=== PATIENT | male | born 1950 | race Caucasian/White ===

== ENCOUNTER 2019-01-13 17:56 | Emergency (ER) | payer BC ==
[2019-01-13 19:34] LABS: ABS Basophils 0.1 10^3/ul (0-0.2); ABS Eosinophils 0.1 10^3/ul (0-0.6); ABS Lymphocytes 0.7 10^3/ul (1.0-4.8); ABS Monocytes 0.8 10^3/ul (0-0.8); ABS Nucleated RBC 0 10^3/ul; Eosinophil % 0.5 %; Hematocrit 44 % (42-52); Lymphocyte % 4.9 %; Mean Corpuscular HGB Conc 34 g/dl (31-36); Mean Corpuscular Hemoglobin 30 pg (27-31); Mean Corpuscular Volume 90 fL (80-94); Mean Platelet Volume 9.1 fL (7.4-10.4); Nucleated Red Blood Cells % 0; Platelet Count 199 10^3/ul (150-450); Red Blood Count 4.92 10^6/ul (4.00-5.40); Red Cell Distribution Width 13 % (10.5-15); White Blood Count 13.5 10^3/ul (3.5-10.8)
[2019-01-13 19:46] LABS: Albumin 4.6 g/dL (3.2-5.2); Albumin/Globulin Ratio 1.6 (1-3); BUN/Creatinine Ratio 9.5 (8-20); C Reactive Protein 1.53 mg/L (<8.01); Calcium 9.9 mg/dL (8.6-10.3); EGFR African American 68.9 (>60); EGFR Non-African American 56.9 (>60); Globulin 2.8 g/dL (2-4); Potassium 3.9 mmol/L (3.5-5.0); Total Bilirubin 1.5 mg/dL (0.2-1.0); Total Protein 7.4 g/dL (6.4-8.9)
[2019-01-13] MEDS ORDERED: PEG 3000 GI LAVAGE* 1 GALLON PO ONE (21:19)
--- NOTE | 2019-01-13 22:11 | ED ---
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 The patient is intermittent and each episode typically lasts for several hours. He reports nausea and vomiting and has been experiencing constipation. He says his stools have been soft for years, and his last normal BM was 4 days ago. He rates the pain 2/10 in severity. He states the pain is not palpable. - History of Current Complaint Chief Complaint: EDAbdPain Stated Complaint: LEFT SIDE ABD PAIN/VOMITING Time Seen by Provider: 01/13/19 21:10 Hx Obtained From: Patient Timing: Intermittent, Lasting Hours Severity Initially: Mild Severity Currently: None Pain Intensity: 0 Pain Scale Used: 0-10 Numeric Location: Discrete At: LLQ Radiates: No - Allergies/Home Medications Allergies/Adverse Reactions: Allergies Allergy/AdvReac Type Severity Reaction Status Date / Time No Known Allergies Allergy Verified 01/15/19 10:42 Home Medications: Home Medications Glimepiride (NF) 2 mg PO DAILY 01/13/19 [History Confirmed 01/13/19] Metformin HCl [Metformin HCl ER] 500 mg PO DAILY 01/13/19 [History Confirmed ] Rosuvastatin Calcium 20 mg PO DAILY 01/13/19 [History Confirmed 01/13/19] PMH/Surg Hx/FS Hx/Imm Hx Cardiovascular History: Reports: Hx Hypertension Respiratory History: Denies: Hx Chronic Obstructive Pulmonary Disease (COPD) Infectious Disease History: No Infectious Disease History: Denies: Traveled Outside the [place] in Last 30 Days - Family History Known Family History: Negative: Cardiac Disease, Hypertension, Diabetes - Social History Alcohol Use: None Substance Use Type: Reports: None Smoking Status (MU): Never Smoked Tobacco Review of Systems Negative: Fever Positive: Abdominal Pain, Vomiting, Nausea, Other - Constipation All Other Systems Reviewed And Are Negative: Yes Physical Exam - Summary Physical Exam Summary: Appearance: Well-appearing, Well-nourished, lying in bed comfortably Skin: Warm, dry, no obvious rash Eyes: sclera anicteric, no conjunctival pallor ENT: mucous membranes moist, pharynx appears normal Neck: Supple, nontender Respiratory: Clear to auscultation, no signs of respiratory distress Cardiovascular: Normal S1, S2. No murmurs. Normal distal pulses in tibial and radial bilaterally. Abdomen: Soft, nontender, normal active bowel sounds present Musculoskeletal: Normal, Strength/ROM Intact. Neurological: A&Ox3, awake and alert, mentation is normal, speech is fluent and appropriate Psychiatric: affect is normal, does not appear anxious or depressed Triage Information Reviewed: Yes Vital Signs On Initial Exam: Initial Vitals Temp Pulse Resp BP Pulse Ox 96.9 F 76 16 180/93 96 01/13/19 17:58 01/13/19 17:58 01/13/19 17:58 01/13/19 17:58 01/13/19 17:58 Vital Signs Reviewed: Yes Diagnostics - Vital Signs Vital Signs Temp Pulse Resp BP Pulse Ox 01/13/19 21:02 93 95 01/13/19 21:00 92 137/84 96 01/13/19 20:35 98.9 F 91 16 141/77 99 01/13/19 17:58 96.9 F 76 16 180/93 96 - Laboratory Lab Results: Lab Results 01/13/19 01/13/19 01/13/19 Range/Units 19:19 19:19 19:19 WBC 13.5 H (3.5-10.8) 10^3/ul RBC 4.92 (4.00-5.40) 10^6/ul Hgb 15.0 (14.0-18.0) g/dl Hct 44 (42-52) % MCV 90 (80-94) fL MCH 30 (27-31) pg MCHC 34 (31-36) g/dl RDW 13 (10.5-15) % Plt Count 199 (150-450) 10^3/ul MPV 9.1 (7.4-10.4) fL Neut % (Auto) 88.2 % Lymph % (Auto) 4.9 % [place] % (Auto) 5.8 % Eos % (Auto) 0.5 % Baso % (Auto) 0.6 % Absolute Neuts (auto) 12.0 H (1.5-7.7) 10^3/ul Absolute Lymphs (auto) 0.7 L (1.0-4.8) 10^3/ul Absolute Monos (auto) 0.8 (0-0.8) 10^3/ul Absolute Eos (auto) 0.1 (0-0.6) 10^3/ul Absolute Basos (auto) 0.1 (0-0.2) 10^3/ul Absolute Nucleated RBC 0 10^3/ul Nucleated RBC % 0 Sodium 139 (135-145) mmol/L Potassium 3.9 (3.5-5.0) mmol/L Chloride 103 (101-111) mmol/L Carbon Dioxide 28 (22-32) mmol/L Anion Gap 8 (2-11) mmol/L BUN 12 (6-24) mg/dL Creatinine 1.26 H (0.67-1.17) mg/dL Est GFR ( Amer) 68.9 (>60) Est GFR (Non-Af Amer) 56.9 (>60) BUN/Creatinine Ratio 9.5 (8-20) Glucose 249 H (70-100) mg/dL Lactic Acid 1.8 (0.5-2.0) mmol/L Calcium 9.9 (8.6-10.3) mg/dL Total Bilirubin 1.50 H (0.2-1.0) mg/dL AST 17 (13-39) U/L ALT 20 (7-52) U/L Alkaline Phosphatase 38 (34-104) U/L C-Reactive Protein 1.53 (<8.01) mg/L Total Protein 7.4 (6.4-8.9) g/dL Albumin 4.6 (3.2-5.2) g/dL Globulin 2.8 (2-4) g/dL Albumin/Globulin Ratio 1.6 (1-3) Lipase 26 (11.0-82.0) U/L Result Diagrams: 01/13/19 19:19 01/13/19 19:19 Lab Statement: Any lab studies that have been ordered have been reviewed, and results considered in the medical decision making process. 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 The patient is intermittent and each episode typically lasts for several hours. Physical exam was unremarkable for diverticulitis. His pain is not present now and this would not be consistent with diverticulitis. A plan for discharge was discussed with the patient and he was agreeable with this plan. - Diagnoses Provider Diagnoses: Constipation, Acute abdominal pain Discharge - Sign-Out/Discharge Documenting (check all that apply): Patient Departure Patient Received Moderate/Deep Sedation with Procedure: No - Discharge Plan Condition: Good Disposition: HOME Patient Education Materials: Constipation (ED), Acute Abdominal Pain (ED) Referrals: Evens Valdivia MD [Primary Care Provider] - Additional Instructions: Since your abdominal exam right now is normal and you have no pain I think a serious problem like diverticulitis is very unlikely. Since you have had trouble with bowel movements recently, the pain is more likely cramping related to that. The golytely should clear your colon out pretty well and if the pain goes away once that happens you should be all set. If the pain comes in again and persists or worsens, we would need to see you back for a CT scan. - Billing Disposition and Condition Condition: GOOD Disposition: Home - Attestation Statements Document Initiated by Radha: Yes Documenting [place]ibe: Rusty Caruso Provider For Whom Radha is Documenting (Include Credential): Addison Rudolph MD Scribe Attestation: IRusty, scribed for Addison Rudolph MD on 01/16/19 at 1559. Scribe Documentation Reviewed: Yes Provider Attestation: The documentation as recorded by the Rusty connor accurately reflects the service I personally performed and the decisions made by me, Addison Rudolph MD Status of Scribyeny Document: Viewed
[2019-01-13 22:24] VITALS: BP 142/88
== END 2019-01-13 22:20 | disposition home or self-care (01) ==
LOC: ED 17:56
DX: R10.32 Left lower quadrant pain (principal); K59.00 Constipation, unspecified; R11.2 Nausea with vomiting, unspecified
CPT/HCPCS: 36415; 80053; 83605; 83690; 85025; 86140; 99283; A9270-GY

== ENCOUNTER 2019-01-15 10:19 | Emergency (ER) | payer BC, MEDICARE ==
[2019-01-15 12:16] LABS: ABS Basophils 0.1 10^3/ul (0-0.2); ABS Eosinophils 0.1 10^3/ul (0-0.6); ABS Monocytes 0.9 10^3/ul (0-0.8); ABS Neutrophils 9.8 10^3/ul (1.5-7.7); ABS Nucleated RBC 0 10^3/ul; Eosinophil % 1.1 %; Hematocrit 44 % (42-52); Hemoglobin 15.1 g/dl (14.0-18.0); Mean Corpuscular HGB Conc 34 g/dl (31-36); Mean Corpuscular Hemoglobin 31 pg (27-31); Mean Corpuscular Volume 89 fL (80-94); Mean Platelet Volume 8.8 fL (7.4-10.4); Nucleated Red Blood Cells % 0; Platelet Count 210 10^3/ul (150-450); Red Blood Count 4.94 10^6/ul (4.00-5.40); Red Cell Distribution Width 13 % (10.5-15); White Blood Count 11.8 10^3/ul (3.5-10.8)
--- NOTE | 2019-01-15 12:44 | ED ---
Abdominal Pain/Male - HPI Summary HPI Summary: Patient is a 68 y/o M presenting to ED with complaints of LLQ. He was seen in ED 2 days ago for similar complaints. He reports that no CT was done, at the time it was thought that patient was just constipated. He was given medications to alleviate constipation, was discharged to home and told to come back if pain persists. Pain has worsened today, patient returned to ED for further evaluation. Intermittent nausea is reported, he states he has been vomiting. No chest pain, no dysuria is reported. He notes that he drinks alcohol, reports that patient drinks on a daily basis but has not had any in past few days. PMHx of liver cirrhosis is denied. No pain medications taken. He states that constipation medications helped alleviate pain somewhat initially. He is a former smoker, quit in 1995, states that he occasional smokes marijuana. On triage, pain is rated 10/10, nothing is noted to aggravate/alleviate Sx. Home medications and allergies are reviewed. - History of Current Complaint Chief Complaint: EDAbdPain Stated Complaint: PAIN IN LOWER LEFT ABD Time Seen by Provider: 01/15/19 12:25 Hx Obtained From: Patient Onset/Duration: Lasting Days, Still Present, Worse Since Timing: Constant, Lasting Days Severity Currently: Severe - 10/10 Pain Intensity: 10 Pain Scale Used: 0-10 Numeric - 10/10 Location: Discrete At: LLQ Aggravating Factor(s): Nothing Alleviating Factor(s): Nothing Associated Signs And Symptoms: Positive: Nausea, Vomiting, Other - no dysuria. Negative: Chest Pain - Allergies/Home Medications Allergies/Adverse Reactions: Allergies Allergy/AdvReac Type Severity Reaction Status Date / Time No Known Allergies Allergy Verified 01/15/19 10:42 PMH/Surg Hx/FS Hx/Imm Hx Cardiovascular History: Reports: Hx Hypertension Respiratory History: Denies: Hx Chronic Obstructive Pulmonary Disease (COPD) GI History: Denies: Hx Cirrhosis Sensory History: Denies: Hx Legally Blind, Hx Deafness Opthamlomology History: Denies: Hx Legally Blind EENT History: Denies: Hx Deafness Infectious Disease History: No Infectious Disease History: Denies: Traveled Outside the [place] in Last 30 Days - Family History Known Family History: Negative: Cardiac Disease, Hypertension, Diabetes - Social History Alcohol Use: Daily Substance Use Type: Reports: Marijuana - "here and there" Smoking Status (MU): Former Smoker - quit in 1995 Review of Systems Negative: Chest Pain Positive: Abdominal Pain, Vomiting, Nausea Negative: dysuria All Other Systems Reviewed And Are Negative: Yes Physical Exam - Summary Physical Exam Summary: GENERAL: Patient is a well-developed and nourished male who is lying uncomfortably in the stretcher secondary to pain. Patient is not in any acute respiratory distress. HEAD AND FACE: Normocephalic EYES: PERRLA, EOMI x 2. EARS: Hearing grossly intact. MOUTH: Oropharynx within normal limits. NECK: Supple, trachea is midline, no adenopathy, no JVD, no carotid bruit. CHEST: Symmetric, no tenderness at palpation LUNGS: Clear to auscultation bilaterally. No wheezing or crackles. CVS: Regular rate and rhythm, S1 and S2 present, no murmurs or gallops appreciated. ABDOMEN: Soft, tender at LLQ. Abdomen is distended, no guarding, no rebound. Bowel sounds are normal. No abdominal abnormal pulsations. EXTREMITIES: Full ROM in all major joints, no edema, no cyanosis or clubbing. NEURO: Alert and oriented x 3. No acute neurological deficits. Speech is normal and follows commands. Triage Information Reviewed: Yes Vital Signs On Initial Exam: Initial Vitals Temp Pulse Resp BP Pulse Ox 97.1 F 77 23 183/124 97 01/15/19 10:38 01/15/19 10:38 01/15/19 10:38 01/15/19 10:38 01/15/19 10:38 Vital Signs Reviewed: Yes Diagnostics - Vital Signs Vital Signs Temp Pulse Resp BP Pulse Ox 01/15/19 10:38 97.1 F 77 23 183/124 97 - Laboratory Lab Results: Lab Results 01/15/19 Range/Units 12:08 WBC 11.8 H (3.5-10.8) 10^3/ul RBC 4.94 (4.00-5.40) 10^6/ul Hgb 15.1 (14.0-18.0) g/dl Hct 44 (42-52) % MCV 89 (80-94) fL MCH 31 (27-31) pg MCHC 34 (31-36) g/dl RDW 13 (10.5-15) % Plt Count 210 (150-450) 10^3/ul MPV 8.8 (7.4-10.4) fL Neut % (Auto) 83.1 % Lymph % (Auto) 8.0 % [place] % (Auto) 7.3 % Eos % (Auto) 1.1 % Baso % (Auto) 0.5 % Absolute Neuts (auto) 9.8 H (1.5-7.7) 10^3/ul Absolute Lymphs (auto) 1.0 (1.0-4.8) 10^3/ul Absolute Monos (auto) 0.9 H (0-0.8) 10^3/ul Absolute Eos (auto) 0.1 (0-0.6) 10^3/ul Absolute Basos (auto) 0.1 (0-0.2) 10^3/ul Absolute Nucleated RBC 0 10^3/ul Nucleated RBC % 0 Result Diagrams: 01/15/19 12:08 01/15/19 12:08 Lab Statement: Any lab studies that have been ordered have been reviewed, and results considered in the medical decision making process. - CT ABD/PEL CT CT Interpretation Completed By: Radiologist Summary of CT Findings: IMPRESSION: 0 POINT 3 CM CALCULUS OF THE MID THIRD OF THE LEFT URETER WITH MILD TO MODERATE LEFT SIDED. HYDRONEPHROSIS. FATTY INFILTRATION OF THE LIVER. DIVERTICULOSIS. ENLARGED PROSTATE. ATHEROSCLEROSIS. THIS REPORT WAS REVIEWED BY ED PHYSICIAN. Re-Evaluation - Re-Evaluation First Eval Re-Evaluation Time: 16:31 Change: Improved Comment: Discussed results with patient and patient reports feeling better. Patient is hemodynamically stable and safe for discharge. Strict return precautions given and patient will otherwise follow up with PCP and urologist. Abdominal Pain Fem Course/Dx - Course Course Of Treatment: Patient is a 68 y/o M presenting to ED with complaints of LLQ. He was seen in ED 2 days ago for similar complaints. He reports that no CT was done, at the time it was thought that patient was just constipated. He was given medications to alleviate constipation, was discharged to home and told to come back if pain persists. Pain has worsened today, patient returned to ED for further evaluation. Intermittent nausea is reported, he states he has been vomiting. No chest pain, no dysuria is reported. He notes that he drinks alcohol , reports that patient drinks on a daily basis but has not had any in past few days. PMHx of liver cirrhosis is denied. No pain medications taken. He states that constipation medications helped alleviate pain somewhat initially. He is a former smoker, quit in 1995, states that he occasional smokes marijuana. On physical exam, patient appears uncomfortable secondary to pain, abdomen is distended, tender at LLQ, no guarding, no rebound. ABD/PEL CT IMPRESSION: 0 POINT 3 CM CALCULUS OF THE MID THIRD OF THE LEFT URETER WITH MILD TO MODERATE LEFT SIDED. HYDRONEPHROSIS. FATTY INFILTRATION OF THE LIVER. DIVERTICULOSIS. ENLARGED PROSTATE. ATHEROSCLEROSIS. Labs showed WBC 11.8, absolute neuts 9.8, absolute monos 0.9, chloride 100, anion gap 13, creatinine 1.22, glucose 221, lactic acid 1.7, total bilirubin 2.2, lipase 23. UA showed ketones 1+, blood 3+, trace WBC, 3+ RBC, present squamous epith cells, 1+ glucose, no bacteria. During ED course, patient received toradol 15 mg IV PUSH ED ONCE, reglan 10 mg IV ED ONCE, morphine 4 mg IV ED ONCE, fluids. Discussed results with patient and patient reports feeling better. Patient is hemodynamically stable and safe for discharge. Strict return precautions given and patient will otherwise follow up with PCP and urologist. - Diagnoses Provider Diagnoses: Kidney stones Discharge - Sign-Out/Discharge Documenting (check all that apply): Patient Departure - discharge Patient Received Moderate/Deep Sedation with Procedure: No - NO PROCEDURES DONE - Discharge Plan Condition: Stable Disposition: HOME Prescriptions: Ondansetron ODT TAB* [Zofran 4 MG Odt TAB*] 4 mg PO Q6H PRN #12 tab.odt PRN Reason: Nausea oxyCODONE/Acetamin 5/325 MG* [Percocet 5/325 TAB*] 1 tab PO Q6H PRN #16 tab MDD 4 PRN Reason: Pain Tamsulosin HCl [Flomax] 0.4 mg PO DAILY #30 cap Patient Education Materials: Kidney Stones (ED) Referrals: Evens Valdivia MD [Primary Care Provider] - 3 Days Barrie Santillan MD [Medical Doctor] - 3 Days Additional Instructions: Follow up with your primary care physician and urologist in 1-3 days. RETURN TO THE EMERGENCY DEPARTMENT FOR CHANGING OR WORSENING SYMPTOMS. - Attestation Statements Document Initiated by Scribe: Yes Documenting Scribe: TRAE ALVARENGA Provider For Whom Scribe is Documenting (Include Credential): ARIC BOURNE MD Scribe Attestation: I, TRAE ALVARENGA , scribed for ARIC BOURNE MD on 01/15/19 at 1644.
[2019-01-15 12:45] LABS: Albumin 4.7 g/dL (3.2-5.2); Albumin/Globulin Ratio 1.6 (1-3); C Reactive Protein 3.09 mg/L (<8.01); Calcium 10.1 mg/dL (8.6-10.3); EGFR African American 71.5 (>60); EGFR Non-African American 59.1 (>60); Globulin 2.9 g/dL (2-4); Potassium 3.6 mmol/L (3.5-5.0); Total Bilirubin 2.2 mg/dL (0.2-1.0); Total Protein 7.6 g/dL (6.4-8.9)
[2019-01-15] MEDS ORDERED: Metoclopramide IV* 5 MG/ML 2 ML VIAL IV ONE (12:48)
[2019-01-15] MEDS ORDERED: Morphine VIAL* 4 MG/ML VIAL (1 ml vial) IV ONE (12:48)
[2019-01-15] MEDS ORDERED: NS 0.9% 1000 ML** 1,000 ML IV ONE (12:48)
[2019-01-15] MEDS ORDERED: Iodixanol* (CONTRAST) 320 MG/ML 100 ML SDV IV ONE (14:35)
[2019-01-15 16:04] LABS: Urine Appearance Clear; Urine Bacteria Absent (Absent); Urine Bilirubin Negative (Negative); Urine Blood 3+ (Negative); Urine Color Yellow; Urine Glucose 1+(50 mg/dL) (Negative); Urine Ketones 1+ (Negative); Urine Nitrite Negative (Negative); Urine Protein Negative (Negative); Urine Red Blood Cell 3+(>10/hpf) (Absent); Urine Specific Gravity 1.024 (1.010-1.030); Urine Squamous Epithelial Cell Present (Absent); Urine Urobilinogen Negative (Negative); Urine White Blood Cell Trace(0-5/hpf) (Absent)
[2019-01-15] MEDS ORDERED: Ketorolac INJ* 30 MG/ML 1 ML VIAL IV PUSH ONE (16:25)
[2019-01-15 17:06] VITALS: BP 140/112
== END 2019-01-15 16:56 | disposition home or self-care (01) ==
LOC: ED 10:19
DX: N13.2 Hydronephrosis with renal and ureteral calculous obstruction (principal); R11.2 Nausea with vomiting, unspecified; K76.0 Fatty (change of) liver, not elsewhere classified; K57.30 Diverticulosis of large intestine without perforation or abscess without bleeding; N40.0 Benign prostatic hyperplasia without lower urinary tract symptoms; I70.0 Atherosclerosis of aorta; Z87.891 Personal history of nicotine dependence
CPT/HCPCS: 36415; 74177; 80053; 81003; 81015; 83605; 83690; 85025; 86140; 87040; 87086; 96374; 96375; 99283; J1885; J2270; J2765; Q9967